=== PATIENT | female | born 1950 | race Caucasian/White ===

== ENCOUNTER 2023-07-28 09:51 | Emergency (ER) | payer MEDICARE, BC ==
[~2023-07-28] VITALS: Ht 160 cm; Wt 71.7 kg
[2023-07-28] MEDS ORDERED: ACET325C7 PO (10:14)
[2023-07-28] MEDS ORDERED: IBUP-76 PO (10:14)
[2023-07-28] MEDS ORDERED: OMEP40CA21 PO (10:14)
[2023-07-28] MEDS ORDERED: LEVO50TA8 PO (10:14)
[2023-07-28] MEDS ORDERED: ATOR10TA PO (10:14)
[2023-07-28 10:29] LABS: BASOPHILS % (AUTO) 0.1 % (0.0-2.0); EOSINOPHILS % (AUTO) 0.3 % (0.0-7.0); HEMATOCRIT 40.3 % (31.2-41.9); LYMPHOCYTES # (AUTO) 0.7 K/uL (0.8-4.8); LYMPHOCYTES % (AUTO) 11.4 % (20.5-51.5); MEAN CORPUSCULAR HEMOGLOBIN 32.4 uug (24.7-32.8); MEAN CORPUSCULAR HGB CONC 35 g/dL (32.3-35.6); MEAN CORPUSCULAR VOLUME 93.5 fL (75.5-95.3); MONOCYTES # (AUTO) 0.6 K/uL (0.1-1.30); MONOCYTES % (AUTO) 10.4 % (0.0-11.0); NEUTROPHILS # (AUTO) 4.6 K/uL (1.8-8.9); NEUTROPHILS % (AUTO) 77.8 % (38.5-71.5); PLATELET COUNT (AUTO) 166 K/uL (179-408); RED BLOOD CELL COUNT(AUTO) 4.31 MIL/uL (3.63-4.92); RED CELL DISTRIBUTION WIDTH 13.6 % (12.3-17.7); WHITE BLOOD COUNT (AUTO) 5.9 K/uL (3.8-11.8)
[2023-07-28 10:33] LABS: DIFFERENTIAL COMMENT 1
[2023-07-28 10:40] LABS: CALCIUM 9.1 mg/dL (8.5-10.1); CREATININE 1.1 mg/dL (0.6-1.3); POTASSIUM 3.5 mmol/L (3.5-5.1)
[2023-07-28 10:53] LABS: ALBUMIN 3.7 g/dL (3.4-5.0); BILIRUBIN,DIRECT 0.3 mg/dL (0.0-0.2); TOTAL PROTEIN, SERUM 7.3 g/dL (6.4-8.2)
[2023-07-28] MEDS: methylPREDNISolone SOD SUCC 125 MG/2 ML VIAL IV ONE (11:15)
[2023-07-28] MEDS: CEFTRIAXONE 1 G in IV DEXTROSE 5% 50 ML IV ONE (11:15)
[2023-07-28] MEDS ORDERED: DOXY100T2 PO (12:38)
[2023-07-28] MEDS ORDERED: ALBU6.7H9 INH (12:38)
[2023-07-28] MEDS ORDERED: PRED20TA PO (12:38)
[2023-07-28 13:28] VITALS: BP 133/78; TEMP 97; O2SAT 99
== END 2023-07-28 13:28 | disposition home or self-care (01) ==
LOC: ER 09:51
DX: J20.9 Acute bronchitis, unspecified (principal); J45.909 Unspecified asthma, uncomplicated; Z79.899 Other long term (current) drug therapy
CPT/HCPCS: 99284; 96365; 71045; 96375; 80076; 80048; 83880; 85025; 36415; 87420; J0696; J2919; A4606; A4663